=== PATIENT | female | born 2000 | race American Indian/Alaskan Native ===

== ENCOUNTER 2022-08-01 00:43 | Emergency (ER) | payer SELFPAY ==
[2022-08-01 01:18] LABS: Color,Urine Yellow (Yellow); HCG Qualitative,Urine Negative (Negative)
[2022-08-01 01:20] LABS: Bacteria,Urine 1+ /HPF (Negative); Mucus,Urine 2+ /HPF
[2022-08-01 01:22] LABS: Ictotest,Urine Negative (Negative)
[2022-08-01 04:29] LABS: Basophils % (Auto) 0.7 % (0.0-1.8); Eosinophils # (Auto) 0.3 K/mm3 (0.0-0.4); Eosinophils % (Auto) 4.5 % (0.0-4.3); Hematocrit 35.2 % (30.3-42.9); Lymphocytes # (Auto) 2.5 K/mm3 (1.2-5.4); Lymphocytes % (Auto) 45.1 % (13.4-35.0); Mean Corpuscular HGB Conc 34 % (30-34); Mean Corpuscular Volume 89 fl (79-97); Monocytes # (Auto) 0.4 K/mm3 (0.0-0.8); Monocytes % (Auto) 6.7 % (0.0-7.3); Platelet Count 236 K/mm3 (140-440); Red Blood Count 3.98 M/mm3 (3.65-5.03); Red Cell Distribution Width 13.1 % (13.2-15.2)
[2022-08-01 04:46] LABS: Alanine Aminotransferase 9 units/L (7-56); Albumin 3.8 g/dL (3.9-5); Blood Urea Nitrogen 14 mg/dL (7-17); Calcium 8.8 mg/dL (8.4-10.2); Hemolysis Index 6
[2022-08-01 04:51] LABS: BUN/Creatinine Ratio 20
--- NOTE | 2022-08-01 07:09 | Emergency Department Report ---
ED Abdominal Pain HPI - General Chief Complaint: Abdominal Pain Stated Complaint: AB PAIN Time Seen by Provider: 08/01/22 06:31 Source: patient Mode of arrival: Ambulatory Limitations: No Limitations - History of Present Illness Initial Comments: 21-year-old female who presents with left lower upper quadrant pressure that started about 2 weeks ago. Patient denies any fever or chills. Patient however reports increasing urination and frequency. She also mentioned burning urination. She says she was told at [employer] testing that she had bladder infection 2 weeks ago. She has not taken any medication to help the symptoms. No nausea and vomiting reported. She reports LMP 07/10/22 and was normal. She did had an about a month. No other modifying or associated factors reported. Severity scale (0 -10): 0 - Related Data Previous Rx's Medication Instructions Recorded Last Taken Type Phenazopyridine [Pyridium] 200 mg PO TID 2 Days #6 tab NS 08/01/22 Unknown Rx cephALEXin [Keflex] 500 mg PO Q12HR 5 Days #10 cap NS 08/01/22 Unknown Rx Allergies Allergy/AdvReac Type Severity Reaction Status Date / Time No Known Allergies Allergy Verified 08/01/22 00:54 ED Review of Systems ROS: Stated complaint: AB PAIN Other details as noted in HPI Comment: All other systems reviewed and negative Gastrointestinal: as per HPI, abdominal pain. denies: nausea, vomiting Genitourinary: as per HPI, urgency, dysuria ED Past Medical Hx - Past Medical History Previous Medical History?: No - Surgical History Past Surgical History?: No - Medications Home Medications: Home Medications Medication Instructions Recorded Confirmed Last Taken Type Phenazopyridine [Pyridium] 200 mg PO TID 2 Days #6 tab NS 08/01/22 Unknown Rx cephALEXin [Keflex] 500 mg PO Q12HR 5 Days #10 cap NS 08/01/22 Unknown Rx ED Physical Exam - General Limitations: No Limitations General appearance: alert, in no apparent distress - Head Head exam: Present: normal inspection - Eye Eye exam: Present: normal appearance Pupils: Present: normal accommodation - ENT ENT exam: Present: normal exam, normal orophraynx, mucous membranes moist - Neck Neck exam: Present: normal inspection, full ROM. Absent: tenderness - Respiratory Respiratory exam: Present: normal lung sounds bilaterally. Absent: respiratory distress, accessory muscle use - Cardiovascular Cardiovascular Exam: Present: regular rate, normal rhythm, normal heart sounds - GI/Abdominal GI/Abdominal exam: Present: soft, normal bowel sounds. Absent: distended, tenderness - Extremities Exam Extremities exam: Present: normal inspection, normal capillary refill. Absent: tenderness, pedal edema - Back Exam Back exam: Absent: tenderness, CVA tenderness (R), CVA tenderness (L) - Neurological Exam Neurological exam: Present: alert, oriented X3 - Psychiatric Psychiatric exam: Present: normal affect, normal mood - Skin Skin exam: Present: warm, normal color ED Course Vital Signs 08/01/22 08/01/22 00:53 04:44 Temperature 97.8 F Pulse Rate 75 86 Respiratory 18 16 Rate Blood Pressure 110/52 Blood Pressure 109/67 [Left] O2 Sat by Pulse 100 98 Oximetry ED Medical Decision Making - Lab Data Result diagrams: 08/01/22 04:12 08/01/22 04:12 - Medical Decision Making here with urinary urgency and frequency-- will go ahead and check routine labs and UA -- Labs reviewed - and noted with positive urine with nitrites and leukocytes-- give Rocephin 1 g IM x1 and discharged home for 5 days of Keflex with close follow-up with your primary doctor. Critical care attestation.: If time is entered above; I have spent that time in minutes in the direct care of this critically ill patient, excluding procedure time. ED Disposition Clinical Impression: Urinary tract infection Qualifiers: Urinary tract infection type: site unspecified Hematuria presence: without hematuria Qualified Code(s): N39.0 - Urinary tract infection, site not specified Disposition: 01 HOME / SELF CARE / HOMELESS Is pt being admited?: No Does the pt Need Aspirin: No Condition: Stable Instructions: Abdominal Pain (ED), Antibiotic Medicine, Adult, [id number], Urinary Tract Infection, Adult, [id number] Additional Instructions: It is very important to take and complete your antibiotics as prescribed to prevent any resistance Increase your daily fluid to help your hydration Call and schedule follow-up with your primary doctor in the next 3 to 5 days for progress Please do not hesitate to call or return to emergency if your symptoms worsen Prescriptions: cephALEXin [Keflex] 500 mg PO Q12HR 5 Days #10 cap NS Phenazopyridine [Pyridium] 200 mg PO TID 2 Days #6 tab NS Referrals: SOPHIA CARDENAS MD [Primary Care Provider] - 3-5 Days Time of Disposition: 07:16
[2022-08-01] MEDS ORDERED: LIDOCAINE-MPF (1%) 10 MG/1 ML VIAL 5 ML INFILTRATI ONE (07:16)
[2022-08-01 07:42] VITALS: BP 115/55
== END 2022-08-01 07:59 | disposition home or self-care (01) ==
LOC: ED 00:43
DX: N39.0 Urinary tract infection, site not specified (principal)
CPT/HCPCS: 36415; 80053; 81001; 81025; 85025; 87086; 96372; 99283; J0696; J3490